=== PATIENT | female | born 1985 | race Asian ===

== ENCOUNTER → 2017-07-06 | Outpatient (CLI) | payer BC ==
[2017-07-06 11:18] LABS: ALANINE AMINOTRANSFERASE 43 IU/L (13-69); ALBUMIN 4.8 g/dl (3.3-4.9); ALBUMIN/GLOBULIN RATIO 1.45; ALKALINE PHOSPHATASE 46 IU/L (42-121); ANION GAP 15 (8-16); ASPARTATE AMINO TRANSFERASE 23 IU/L (15-46); BILIRUBIN,INDIRECT 0.5 mg/dl (0-1.1); BILIRUBIN,TOTAL 0.5 mg/dl (0.2-1.3); BLOOD UREA NITROGEN 14 mg/dl (7-20); CALCIUM 9.7 mg/dl (8.4-10.2); CARBON DIOXIDE 27 mmol/L (21-31); CHLORIDE 107 mmol/L (97-110); CREATININE 0.69 mg/dl (0.44-1.00); GLUCOSE 104 mg/dl (70-220); SODIUM 145 mmol/L (135-144); TOTAL PROTEIN 8.1 g/dl (6.1-8.1)
== END | disposition home or self-care (01) ==
LOC: LAB 10:25
DX: N99.4 Postprocedural pelvic peritoneal adhesions (principal)
CPT/HCPCS: 80053

== ENCOUNTER → 2018-01-19 | Outpatient (CLI) | payer BC ==
[2018-01-19 07:38] LABS: ADD MAN DIFF? NO
[2018-01-19 07:45] LABS: BASOPHILS % 0.3 % (0.0-2.0); EOSINOPHILS # 0.1 10^3/ul (0.0-0.5); EOSINOPHILS % 0.8 % (0.0-7.0); HEMATOCRIT 35.6 % (37.0-47.0); HEMOGLOBIN 11.9 g/dl (12.0-16.0); LYMPHOCYTES % 20.5 % (15.0-51.0); MEAN CORPUSCULAR HEMOGLOBIN 29.2 pg (29.0-33.0); MEAN CORPUSCULAR HGB CONC 33.4 g/dl (32.0-37.0); MEAN CORPUSCULAR VOLUME 87.3 fl (82.0-101.0); MEAN PLATELET VOLUME 11.5 fl (7.4-10.4); MONOCYTE # 0.7 10^3/ul (0.3-0.9); MONOCYTES % 6.9 % (0.0-11.0); NEUTROPHILS % 71.1 % (39.0-77.0); PLATELET COUNT 166 10^3/UL (140-415); RED BLOOD COUNT 4.08 10^6/ul (4.20-5.40); RED CELL DISTRIBUTION WIDTH 13.7 % (11.5-14.5)
[2018-01-19 07:45] LABS: WHITE BLOOD COUNT 9.8 10^3/ul (4.8-10.8)
[2018-01-19 07:57] LABS: ADD UMIC NO; UR ASCORBIC ACID NEGATIVE (NEGATIVE); UR BILIRUBIN (Dip) NEGATIVE (NEGATIVE); UR BLOOD (Dip) NEGATIVE (NEGATIVE); UR CLARITY CLEAR (CLEAR); UR COLOR COLORLESS (YELLOW); UR GLUCOSE (Dip) NEGATIVE (NEGATIVE); UR KETONES (Dip) NEGATIVE (NEGATIVE); UR LEUKOCYTE ESTERASE (Dip) NEGATIVE Leu/ul (NEGATIVE); UR NITRITE (Dip) NEGATIVE (NEGATIVE); UR SPECIFIC GRAVITY (Dip) 1.001 (1.003-1.030); UR TOTAL PROTEIN (Dip) NEGATIVE (NEGATIVE); UR UROBILINOGEN (Dip) NEGATIVE (NEGATIVE)
[2018-01-19 08:03] LABS: INR 0.86; PROTIME 11.8 Sec (11.9-14.9); PT RATIO 0.9
[2018-01-19 08:15] LABS: ALANINE AMINOTRANSFERASE 43 IU/L (13-69); ALBUMIN 4.2 g/dl (3.3-4.9); ALBUMIN/GLOBULIN RATIO 1.27; ALKALINE PHOSPHATASE 37 IU/L (42-121); ANION GAP 16 (8-16); ASPARTATE AMINO TRANSFERASE 26 IU/L (15-46); BILIRUBIN,INDIRECT 0.5 mg/dl (0-1.1); BILIRUBIN,TOTAL 0.5 mg/dl (0.2-1.3); BLOOD UREA NITROGEN 8 mg/dl (7-20); CALCIUM 9.7 mg/dl (8.4-10.2); CARBON DIOXIDE 25 mmol/L (21-31); CHLORIDE 103 mmol/L (97-110); CREATININE 0.51 mg/dl (0.44-1.00); GLUCOSE 93 mg/dl (70-220); POTASSIUM 3.7 mmol/L (3.5-5.1); SODIUM 140 mmol/L (135-144); TOTAL PROTEIN 7.5 g/dl (6.1-8.1)
[2018-01-19 08:46] LABS: HEPATITIS B SURFACE ANTIGEN POSITIVE (NEGATIVE)
[2018-01-19 09:03] LABS: HEPATITIS C VIRAL ANTIBODY NEGATIVE (NEGATIVE); HIV 1&2 ANTIBODY NEGATIVE (NEGATIVE)
[2018-01-19 19:06] LABS: RAPID PLASMA REAGIN NONREACTIVE (NR)
[2018-01-20 00:57] LABS: HEPATITIS B SURFACE ANTIGEN REACTIVE (NON-REACTIVE)
[2018-01-20 11:36] LABS: RUBELLA ANTIBODY - IGG 8.74 index
[2018-01-23 13:51] LABS: RUBELLA ANTIBODY - IGM <20.00 AU/mL
== END | disposition home or self-care (01) ==
LOC: LAB 07:06
DX: O98.419 Viral hepatitis complicating pregnancy, unspecified trimester (principal); B19.20 Unspecified viral hepatitis C without hepatic coma; Z3A.00 Weeks of gestation of pregnancy not specified
CPT/HCPCS: 80053; 81003; 82306; 82950; 84443; 85025; 85610; 86592; 86703; 86704; 86762; 86803; 86850; 86900; 86901; 87340

== ENCOUNTER → 2018-02-13 | Outpatient (CLI) | payer BC ==
[2018-02-13 13:12] LABS: HEPATITIS B SURFACE ANTIBODY NEGATIVE (NEGATIVE)
[2018-02-13 13:14] LABS: HEPATITIS B CORE ANTIBODY REACTIVE (NEGATIVE)
== END | disposition home or self-care (01) ==
LOC: LAB 10:55
DX: O36.90X0 Maternal care for fetal problem, unspecified, unspecified trimester, not applicable or unspecified (principal); Z3A.00 Weeks of gestation of pregnancy not specified
CPT/HCPCS: 83036; 86704; 86706

== ENCOUNTER → 2018-05-11 | Outpatient (CLI) | payer BC ==
[2018-05-11 09:49] LABS: ADD MAN DIFF? NO
[2018-05-11 09:50] LABS: BASOPHILS % 0.3 % (0.0-2.0); EOSINOPHILS # 0.1 10^3/ul (0.0-0.5); EOSINOPHILS % 1.1 % (0.0-7.0); HEMATOCRIT 33.4 % (37.0-47.0); HEMOGLOBIN 10.9 g/dl (12.0-16.0); LYMPHOCYTES # 1.8 10^3/ul (0.8-2.9); LYMPHOCYTES % 16.4 % (15.0-51.0); MEAN CORPUSCULAR HEMOGLOBIN 30.2 pg (29.0-33.0); MEAN CORPUSCULAR HGB CONC 32.6 g/dl (32.0-37.0); MEAN CORPUSCULAR VOLUME 92.5 fl (82.0-101.0); MEAN PLATELET VOLUME 10.4 fl (7.4-10.4); MONOCYTE # 0.7 10^3/ul (0.3-0.9); MONOCYTES % 6.8 % (0.0-11.0); NEUTROPHIL # 7.9 10^3/ul (1.6-7.5); NEUTROPHILS % 71.6 % (39.0-77.0); PLATELET COUNT 190 10^3/UL (140-415); RED BLOOD COUNT 3.61 10^6/ul (4.20-5.40); RED CELL DISTRIBUTION WIDTH 13.3 % (11.5-14.5)
== END | disposition home or self-care (01) ==
LOC: LAB 08:26
DX: O24.410 Gestational diabetes mellitus in pregnancy, diet controlled (principal); Z3A.00 Weeks of gestation of pregnancy not specified
CPT/HCPCS: 82950; 85025

== ENCOUNTER 2018-07-24 09:50 | Outpatient (CLI) | payer BC ==
[2018-07-24 11:37] LABS: RUPTURE FETAL MEMBRANES NEGATIVE (NEGATIVE)
== END 2018-07-24 12:33 | disposition home or self-care (01) ==
LOC: OBT 09:50 → L-D 09:51 → OBT 12:33
DX: O62.9 Abnormality of forces of labor, unspecified (principal); Z3A.38 38 weeks gestation of pregnancy
CPT/HCPCS: 76818; 84112

== ENCOUNTER 2018-07-30 09:02 | Inpatient (IN) | payer BC ==
[2018-07-30] MEDS ORDERED: BUTORPHANOL 2 MG INJ IV (09:30)
[2018-07-30] MEDS ORDERED: MISOPROSTOL 200 MCG TAB PR ×2 (09:30→11:30)
[2018-07-30] MEDS ORDERED: IBUPROFEN 600 MG TAB PO (09:30)
[2018-07-30] MEDS ORDERED: OXYTOCIN 30 UNITS/LR 500 ML IV ×2 (09:30→11:30)
[2018-07-30] MEDS ORDERED: CARBOPROST 250 MCG INJ IM ×2 (09:30→11:30)
[2018-07-30] MEDS ORDERED: METHYLERGONOVINE 0.2 MG INJ IM ×2 (09:30→11:30)
[2018-07-30 09:38] LABS: ADD MAN DIFF? NO
[2018-07-30 09:48] LABS: BASOPHIL # 0.1 10^3/ul (0.0-0.1); BASOPHILS % 0.4 % (0.0-2.0); EOSINOPHILS # 0.1 10^3/ul (0.0-0.5); EOSINOPHILS % 0.7 % (0.0-7.0); HEMATOCRIT 40.2 % (37.0-47.0); HEMOGLOBIN 13.4 g/dl (12.0-16.0); LYMPHOCYTES # 2.9 10^3/ul (0.8-2.9); MEAN CORPUSCULAR HEMOGLOBIN 31.2 pg (29.0-33.0); MEAN CORPUSCULAR HGB CONC 33.3 g/dl (32.0-37.0); MEAN CORPUSCULAR VOLUME 93.5 fl (82.0-101.0); MEAN PLATELET VOLUME 11.8 fl (7.4-10.4); MONOCYTE # 0.9 10^3/ul (0.3-0.9); MONOCYTES % 7.4 % (0.0-11.0); NEUTROPHIL # 7.9 10^3/ul (1.6-7.5); NEUTROPHILS % 65.4 % (39.0-77.0); PLATELET COUNT 142 10^3/UL (140-415); RED CELL DISTRIBUTION WIDTH 14.1 % (11.5-14.5)
[2018-07-30 09:48] LABS: WHITE BLOOD COUNT 12.1 10^3/ul (4.8-10.8)
[2018-07-30] MEDS: LACTATED RINGER'S 1,000 ML IV (09:52)
[2018-07-30] MEDS: LIDOCAINE 1% (MPF) 30 ML INJ INJ (09:53)
[2018-07-30 10:08] LABS: INR 0.81; PROTIME 11.3 Sec (11.9-14.9); PT RATIO 0.9
[2018-07-30] MEDS: OXYCODONE/ASPIRIN (4.88/325) TAB PO (10:40)
[2018-07-30] MEDS: OXYTOCIN 30 UNITS/LR 500 ML IV ×3 (10:42→11:06)
[2018-07-30] MEDS: LACTATED RINGER'S 1,000 ML IV* (11:06)
[2018-07-30] MEDS: LANOLIN HPA 1 PKT TOP (13:40)
[2018-07-30] MEDS: IBUPROFEN 600 MG TAB PO ×3 (13:40→23:44)
[2018-07-30 13:59] LABS: HEPATITIS B SURFACE ANTIGEN POSITIVE (NEGATIVE)
[2018-07-30 22:16] LABS: RAPID PLASMA REAGIN NONREACTIVE (NR)
[2018-07-31] MEDS: HYDROCODONE/APAP (5/325) TAB PO (03:26)
[2018-07-31] MEDS: IBUPROFEN 600 MG TAB PO ×2 (05:35→11:44)
[2018-07-31 09:12] LABS: ADD MAN DIFF? NO
[2018-07-31 09:20] LABS: BASOPHIL # 0.1 10^3/ul (0.0-0.1); BASOPHILS % 0.4 % (0.0-2.0); EOSINOPHILS # 0.1 10^3/ul (0.0-0.5); EOSINOPHILS % 0.7 % (0.0-7.0); HEMATOCRIT 32.9 % (37.0-47.0); HEMOGLOBIN 10.8 g/dl (12.0-16.0); LYMPHOCYTES # 2.9 10^3/ul (0.8-2.9); LYMPHOCYTES % 20.5 % (15.0-51.0); MEAN CORPUSCULAR HEMOGLOBIN 30.6 pg (29.0-33.0); MEAN CORPUSCULAR HGB CONC 32.8 g/dl (32.0-37.0); MEAN CORPUSCULAR VOLUME 93.2 fl (82.0-101.0); MONOCYTE # 1.1 10^3/ul (0.3-0.9); MONOCYTES % 7.5 % (0.0-11.0); NEUTROPHIL # 9.7 10^3/ul (1.6-7.5); NEUTROPHILS % 69.3 % (39.0-77.0); PLATELET COUNT 143 10^3/UL (140-415); RED BLOOD COUNT 3.53 10^6/ul (4.20-5.40); RED CELL DISTRIBUTION WIDTH 13.9 % (11.5-14.5)
[2018-07-31] MEDS: DIPHTH/TET/ACEL PERTUSS (ADULT) 0.5 ML VIAL IM* (12:38)
[2018-08-01 07:01] LABS: HEPATITIS B SURFACE ANTIGEN REACTIVE (NON-REACTIVE)
== END 2018-07-31 18:39 | disposition home or self-care (01) | DRG 806 ==
LOC: OBT 09:02 → L-D 09:02 → OBT 09:03 → L-D 09:03 → PP1 11:46
PROVIDERS: Obstetrics & Gynecology
PROC: 10E0XZZ Delivery of Products of Conception, External Approach (ICD-10-PCS; principal; 2018-07-30)
PROC: 0KQM0ZZ Repair Perineum Muscle, Open Approach (ICD-10-PCS; 2018-07-30)
DX: O70.1 Second degree perineal laceration during delivery (principal); B18.1 Chronic viral hepatitis B without delta-agent; Z37.0 Single live birth; Z3A.39 39 weeks gestation of pregnancy
CPT/HCPCS: 85025; 85610; 85730; 86592; 86704; 86850; 86870; 86900; 86901; 87340